=== PATIENT | male | born 1980 | race Caucasian/White ===

== ENCOUNTER 2021-10-02 07:43 | Inpatient (IN) | payer OTHER ==
[~2021-10-02] VITALS: Ht 177.8 cm; Wt 89.4 kg
[2021-10-02] VITALS (49 sets, daily range): BP systolic 112–202; BP diastolic 54–118
[2021-10-02] MEDS ORDERED: AMIODARONE HCL 150 MG in D5W 5% 100 ML IV ONE (08:00)
[2021-10-02] MEDS ORDERED: AMIODARONE 450mg/250ml AE 250 ML IV SCH ×2 (08:00→14:00)
[2021-10-02] MEDS ORDERED: NOREPINEPHRINE 8 MG/250ML KIT 250 ML IV SCH (08:00)
[2021-10-02] MEDS ORDERED: EPINEPHrine HCL 250 ML IV ONE (08:01)
[2021-10-02] MEDS ORDERED: SODIUM BICARBONATE 8.4% INJ 50ML SYRINGE ONE ×2 (08:04→08:17)
[2021-10-02] MEDS ORDERED: LIDOCAINE 50MG/5ML INJ 5ML SYRINGE IV ONE (08:07)
[2021-10-02] MEDS: EPINEPHrine HCL 250 ML IV SCH (08:10)
[2021-10-02 08:12] LABS: Urine Bacteria MOD /hpf (None Seen); Urine Blood TRACE /uL (Negative); Urine Mucus FEW (None Seen); Urine Specific Gravity 1.009 (1.001-1.035); Urine Sperm PRESENT /hpf (None Seen); Urine WBC 22 /hpf (0 - 3)
[2021-10-02] MEDS ORDERED: SODIUM BICARBONATE 8.4 % INJ 50ML VIAL IV ONE ×3 (08:15→14:21)
[2021-10-02] MEDS ORDERED: SODIUM CHLORIDE 0.9% 1,000 ML IV ONE ×2 (08:15→11:15)
[2021-10-02] MEDS ORDERED: methylPREDNISolone SOD SUCC 125 MG/2 ML VL IV ONE ×2 (08:15→08:30)
[2021-10-02] MEDS ORDERED: cefTRIAXone 1GM/50ML D5W 50 ML IV ONE (08:15)
[2021-10-02] MEDS ORDERED: AZITHROMYCIN 500MG/ 250ML 250 ML IV ONE (08:15)
[2021-10-02] MEDS: LIDOCAINE 4MG/ML IV SOLN 500 ML IV SCH (08:19)
[2021-10-02 08:24] LABS: Alcohol, Urine < 3.0 mg/dL (0-10); Amphetamine Screen, Urine NEGATIVE (NEGATIVE); Barbiturate Scree,Urine NEGATIVE (NEGATIVE); Benzodiazephine Screen, Urine NEGATIVE (NEGATIVE); Cannabinoid Screen, Urine NEGATIVE (NEGATIVE); Cocaine Screen, Urine NEGATIVE (NEGATIVE); Opiate Scree,Urine NEGATIVE (NEGATIVE); Phencyclidine Screen, Urine NEGATIVE (NEGATIVE)
[2021-10-02 08:30] LABS: Hemoglobin 12.4 g/dL (13.5-17.5); Mean Corpuscular Hgb Conc. 31.1 g/dL (32.0-36.0); Mean Corpuscular Volume 90.3 fL (80.0-100.0); Red Blood Cells 4.43 10^6/uL (4.5-5.90); Red Cell Distribution Width 13.9 % (11.8-14.3); White Blood Cell 18.4 10^3/uL (4.4-10.8)
[2021-10-02] MEDS ORDERED: LIDOCAINE HCL 100 MG/5ML (2%) SYRG INJ IV ONE ×2 (08:30→14:30)
[2021-10-02] MEDS: NOREPINEPHRINE 8 MG/250ML KIT 250 ML IV SCH ×2 (08:32→21:52)
[2021-10-02 08:49] LABS: INR 1.13 (0.9-1.15); Partial Thromboplastin Time 31.1 sec (24.6-33.4)
[2021-10-02 08:50] LABS: Magnesium 2.4 mg/dL (1.6-2.6); Potassium 3.5 mmol/L (3.5-5.1)
[2021-10-02] MEDS ORDERED: MIDAZOLAM DRIP 50 mg/50mL 50 ML IV ONE (08:51)
[2021-10-02] MEDS: MIDAZOLAM DRIP 50 mg/50mL 50 ML IV SCH (08:52)
[2021-10-02 08:53] LABS: BUN/Creatinine Ratio 13.2; Bilirubin, Total 0.5 mg/dL (0.2-1.0); Total Protein 5.3 g/dL (6.4-8.2)
[2021-10-02 08:56] LABS: Blast Cells 0; Myelocytes % 0; Promyelocytes % 0
[2021-10-02] MEDS ORDERED: PROPOFOL 100 ML IV ONE (09:05)
[2021-10-02] MEDS: PROPOFOL 100 ML IV SCH ×2 (09:06→22:11)
[2021-10-02 09:33] LABS: Band Neutrophils % (manual) 1; Basophils % (manual) 1 (0.0-2.0); Eosinophils % (manual) 1 (0-7); Lymphocytes % (manual) 50 (10.0-50.0); Metamyelocytes % 1; Monocytes % (manual) 5 (0-12); Reactive Lymphocytes 5
[2021-10-02] MEDS ORDERED: POTASSIUM CHL 20MEQ/100ML 100 ML IV ONE (11:00)
[2021-10-02] MEDS ORDERED: ASPirin 325 MG TAB PO ONE (11:00)
[2021-10-02] MEDS ORDERED: HEPARIN SODIUM (PORCINE) 5000 UNITS/ML 1ML VIAL IV ONE (11:45)
[2021-10-02] MEDS ORDERED: HEPARIN DRIP/D5W 100UNITS/ML 250 ML IV SCH ×3 (11:50→19:30)
[2021-10-02] MEDS ORDERED: MORPHINE SULFATE INJ 2 MG/ml SYRG IV PRN ×2 (12:30→14:30)
[2021-10-02] MEDS ORDERED: NITROGLYCERIN 0.4 MG SL TAB SL PRN ×2 (12:30→14:30)
[2021-10-02 13:09] LABS: Cholesterol 109 mg/dL (< 200); HDL Cholesterol 44 mg/dL (40-59); LDL Cholesterol 60 mg/dL (< 100); Triglycerides 115 mg/dL (< 150)
[2021-10-02] MEDS ORDERED: AMIODARONE HCL (50 MG/ ML) 3 ML VIAL IV ONE (14:21)
[2021-10-02] MEDS ORDERED: D5W 5% 100 ML MINI BAG IV ONE (14:21)
[2021-10-02] MEDS ORDERED: EPINEPHrine HCL 1 MG/10 ML SYRG IV ONE (14:21)
[2021-10-02] MEDS ORDERED: VANCOMYCIN PER PHARMACY 0 MG IV SCH (14:45)
[2021-10-02] MEDS ORDERED: VANCOMYCIN 1GM/250ML 250 ML IV ONE (15:00)
[2021-10-02] MEDS ORDERED: DEXTROSE (50%) 50ML SYRG IV PRN (15:45)
[2021-10-02] MEDS ORDERED: ASPI1TAB20 PO (16:02)
[2021-10-02] MEDS ORDERED: PRE5T PO (16:02)
[2021-10-02] MEDS ORDERED: METO1TAB9 PO (16:02)
[2021-10-02] MEDS ORDERED: SODI650T PO (16:02)
[2021-10-02] MEDS ORDERED: TACR1CAP19 PO (16:02)
[2021-10-02] MEDS ORDERED: NITR0.4S29 SL (16:02)
[2021-10-02] MEDS ORDERED: ROSU10TA16 PO (16:02)
[2021-10-02] MEDS ORDERED: MYCO500T PO (16:02)
[2021-10-02] MEDS: ACCU-CHEK COMFORT CURVE STRIP VI SCH ×2 (16:29→20:45)
[2021-10-02] MEDS: SOD CHL 0.45% 1,000 ML IV SCH (16:29)
[2021-10-02] MEDS: InsuLIN REG 1unit/0.01ml Soln (100units/ml) SC SCH ×2 (16:49→20:46)
[2021-10-02] MEDS: PIPERACILLIN-TAZOB 2.25GM 50 ML IV SCH (18:42)
[2021-10-02 18:55] LABS: INR 1.16 (0.9-1.15); Partial Thromboplastin Time 35.5 sec (24.6-33.4)
[2021-10-02] MEDS ORDERED: INSULIN LANTUS (GLARGINE) 1 /0.01ml (100units/ml) SC ONE (20:30)
[2021-10-03] VITALS (99 sets, daily range): BP systolic 93–138; BP diastolic 45–73
[2021-10-03] MEDS ORDERED: DEXTROSE (50%) 50ML SYRG IV PRN ×2 (00:15→08:45)
[2021-10-03] MEDS: PIPERACILLIN-TAZOB 2.25GM 50 ML IV SCH ×2 (00:57→06:12)
[2021-10-03] MEDS: SOD CHL 0.45% 1,000 ML IV SCH ×3 (01:00→21:00)
[2021-10-03 01:14] LABS: Calcium 7.9 mg/dL (8.5-10.1); Potassium 4.5 mmol/L (3.5-5.1)
[2021-10-03 01:19] LABS: BUN/Creatinine Ratio 14.5
[2021-10-03] MEDS ORDERED: InsuLIN REG 1unit/0.01ml Soln (100units/ml) SC ONE (01:30)
[2021-10-03 02:09] LABS: INR 1.18 (0.9-1.15)
[2021-10-03 02:19] LABS: Partial Thromboplastin Time 98.8 sec (24.6-33.4)
[2021-10-03 04:09] LABS: Basophils # (auto) 0 10 ^3/uL (0-0.2); Basophils % (auto) 0.1 % (0.0-2.0); Eosinophils # (auto) 0 10 ^3/uL (0-0.8); Hematocrit 43.1 % (41.0-53.0); Hemoglobin 13.8 g/dL (13.5-17.5); Lymphocytes # (auto) 0.4 10 ^3/uL (0.4-5.4); Lymphocytes % (auto) 2.4 % (10.0-50.0); Mean Corpuscular Hemoglobin 28.4 pg (28.0-32.0); Mean Corpuscular Hgb Conc. 32.1 g/dL (32.0-36.0); Mean Corpuscular Volume 88.6 fL (80.0-100.0); Monocytes # (auto) 0.7 10 ^3/uL (0-1.3); Monocytes % (auto) 4.1 % (0.0-12.0); Neutrophils # (auto) 16.3 10 ^3/uL (1.6-8.6); Neutrophils % (auto) 93.4 % (37.0-80.0); Nucleated Red Blood Cells % 0.1 %; Red Blood Cells 4.86 10^6/uL (4.5-5.90); Red Cell Distribution Width 13.8 % (11.8-14.3); White Blood Cell 17.5 10^3/uL (4.4-10.8)
[2021-10-03] MEDS: InsuLIN REG 1unit/0.01ml Soln (100units/ml) SC SCH ×2 (04:44→08:18)
[2021-10-03] MEDS: ACCU-CHEK COMFORT CURVE STRIP VI SCH ×12 (04:45→22:42)
[2021-10-03 04:51] LABS: Albumin 3.5 g/dL (3.4-5.0); Potassium 4.3 mmol/L (3.5-5.1)
[2021-10-03 04:54] LABS: Bilirubin, Total 0.6 mg/dL (0.2-1.0); Phosphorus 2.5 mg/dL (2.5-4.90); Total Protein 6.5 g/dL (6.4-8.2)
[2021-10-03 05:05] LABS: BUN/Creatinine Ratio 12.7
[2021-10-03] MEDS: MIDAZOLAM DRIP 50 mg/50mL 50 ML IV SCH ×4 (05:57→20:39)
[2021-10-03] MEDS: EPINEPHrine HCL 250 ML IV SCH ×2 (08:00→16:44)
[2021-10-03] MEDS: LIDOCAINE 4MG/ML IV SOLN 500 ML IV SCH ×2 (08:15→16:45)
[2021-10-03 08:22] LABS: INR 1.2 (0.9-1.15); Partial Thromboplastin Time 67.3 sec (24.6-33.4)
[2021-10-03] MEDS ORDERED: INSULIN LANTUS (GLARGINE) 1 /0.01ml (100units/ml) SC ONE (08:45)
[2021-10-03] MEDS ORDERED: InsuLIN R (HUMAN) 100 UNITS in SODIUM CHL 0.9% 99 ML IV SCH (08:45)
[2021-10-03] MEDS: SODIUM CHLORIDE 0.9% 1,000 ML IV SCH ×4 (09:42→20:43)
[2021-10-03] MEDS ORDERED: MYCOPHENOLATE 500 MG TAB PO SCH (10:00)
[2021-10-03] MEDS ORDERED: TACROLIMUS 1 MG CAP PO SCH (10:00)
[2021-10-03] MEDS: LINEZOLID 600MG/300ML 300 ML IV SCH ×2 (10:08→22:11)
[2021-10-03] MEDS: ASPirin 81 mg TAB PO SCH (10:08)
[2021-10-03] MEDS: PROPOFOL 100 ML IV SCH ×3 (10:59→21:28)
[2021-10-03] MEDS: NOREPINEPHRINE 8 MG/250ML KIT 250 ML IV SCH ×2 (11:12→16:17)
[2021-10-03] MEDS: MYCOPHENOLATE 1000mg/5ml ORALsusp 200mg/ml NG SCH ×2 (11:40→22:13)
[2021-10-03] MEDS: MEROPENEM 1GM IVPB 100 ML IV SCH (11:57)
[2021-10-03] MEDS: TACROLIMUS 1 MG CAP GT SCH ×2 (11:59→22:13)
[2021-10-03] MEDS ORDERED: SODIUM CHLORIDE 0.9% 1,000 ML IV SCH (12:45)
[2021-10-03] MEDS ORDERED: VANCOMYCIN 750mg/250ml 250 ML IV SCH (16:00)
[2021-10-03 16:08] LABS: BUN/Creatinine Ratio 13.2; Calcium 7.6 mg/dL (8.5-10.1); Potassium 3.5 mmol/L (3.5-5.1)
[2021-10-03 16:32] LABS: INR 1.26 (0.9-1.15)
[2021-10-03 16:38] LABS: Partial Thromboplastin Time > 139.0 sec (24.6-33.4)
[2021-10-03] MEDS: HEPARIN DRIP/D5W 100UNITS/ML 250 ML IV SCH (17:45)
[2021-10-03] MEDS ORDERED: FUROSEMIDE 100 MG/10ML VIAL IV ONE (19:00)
[2021-10-03] MEDS ORDERED: INSULIN LANTUS (GLARGINE) 1 /0.01ml (100units/ml) SC SCH (22:00)
[2021-10-04] VITALS (104 sets, daily range): BP systolic 89–130; BP diastolic 43–74
[2021-10-04] MEDS: MEROPENEM 1GM IVPB 100 ML IV SCH (00:07)
[2021-10-04] MEDS: MIDAZOLAM DRIP 50 mg/50mL 50 ML IV SCH ×6 (00:14→21:54)
[2021-10-04 01:07] LABS: INR 1.18 (0.9-1.15); Partial Thromboplastin Time 40.9 sec (24.6-33.4)
[2021-10-04] MEDS: ACCU-CHEK COMFORT CURVE STRIP VI SCH ×8 (01:46→23:55)
[2021-10-04] MEDS: PROPOFOL 100 ML IV SCH ×3 (01:48→22:51)
[2021-10-04] MEDS: SODIUM CHLORIDE 0.9% 1,000 ML IV SCH (04:05)
[2021-10-04 04:20] LABS: Hematocrit 34.9 % (41.0-53.0); Hemoglobin 11.9 g/dL (13.5-17.5); Mean Corpuscular Volume 85.3 fL (80.0-100.0); Red Blood Cells 4.09 10^6/uL (4.5-5.90); Red Cell Distribution Width 14.5 % (11.8-14.3)
[2021-10-04 04:51] LABS: Basophils % (manual) 0 (0.0-2.0); Blast Cells 0; Eosinophils % (manual) 0 (0-7); Myelocytes % 0; Promyelocytes % 0; Reactive Lymphocytes 0; White Blood Cell 32.6 10^3/uL (4.4-10.8)
[2021-10-04] MEDS: HEPARIN DRIP/D5W 100UNITS/ML 250 ML IV SCH (05:45)
[2021-10-04] MEDS: NOREPINEPHRINE 8 MG/250ML KIT 250 ML IV SCH (05:48)
[2021-10-04 06:00] LABS: Band Neutrophils % (manual) 16; Lymphocytes % (manual) 8 (10.0-50.0); Metamyelocytes % 1; Monocytes % (manual) 8 (0-12)
[2021-10-04] MEDS ORDERED: DEXTROSE (50%) 50ML SYRG IV PRN (06:45)
[2021-10-04 07:23] LABS: Albumin 2.7 g/dL (3.4-5.0); BUN/Creatinine Ratio 11.9; Calcium 7.1 mg/dL (8.5-10.1); Potassium 4.5 mmol/L (3.5-5.1)
[2021-10-04 07:26] LABS: Bilirubin, Total 0.4 mg/dL (0.2-1.0); Total Protein 5.5 g/dL (6.4-8.2)
[2021-10-04] MEDS: SOD CHL 0.45% 1,000 ML IV SCH (08:26)
[2021-10-04] MEDS ORDERED: PANTOPRAZOLE 40 MG/10 ML VIAL INJ IV SCH (10:00)
[2021-10-04] MEDS: ASPirin 81 mg TAB PO SCH (10:48)
[2021-10-04] MEDS: LINEZOLID 600MG/300ML 300 ML IV SCH ×2 (10:49→21:10)
[2021-10-04] MEDS: TACROLIMUS 1 MG CAP GT SCH ×2 (10:50→21:55)
[2021-10-04] MEDS: MYCOPHENOLATE 1000mg/5ml ORALsusp 200mg/ml NG SCH ×2 (10:50→21:55)
[2021-10-04] MEDS: INSULIN LANTUS (GLARGINE) 1 /0.01ml (100units/ml) SC SCH (11:00)
[2021-10-04 11:27] LABS: Hepatitis B Surface Antibody Negative (Negative)
[2021-10-04] MEDS: InsuLIN REG 1unit/0.01ml Soln (100units/ml) SC SCH ×3 (12:00→23:52)
[2021-10-04 12:03] LABS: Hepatitis A Total Antibody Negative (Negative)
[2021-10-04] MEDS ORDERED: PIPERACILLIN-TAZOB 3.375GM 100 ML IV ONE (12:06)
[2021-10-04] MEDS ORDERED: DOPamine 1600MCG/ML D5W 250 ML IV ONE (13:27)
[2021-10-04] MEDS: PIPERACILLIN-TAZOB 3.375GM 100 ML IV SCH ×2 (13:37→22:05)
[2021-10-04 13:48] LABS: Hepatitis C Antibody Negative (Negative)
[2021-10-04 13:53] LABS: INR 1.18 (0.9-1.15); Partial Thromboplastin Time 56.7 sec (24.6-33.4)
[2021-10-04 14:09] LABS: Protein, Urine 20.9 mg/dL (0.0-11.9)
[2021-10-04] MEDS: DOPamine 1600MCG/ML D5W 250 ML IV SCH (14:12)
[2021-10-04 19:45] LABS: INR 1.16 (0.9-1.15); Partial Thromboplastin Time 58.6 sec (24.6-33.4)
[2021-10-05] VITALS (102 sets, daily range): BP systolic 106–138; BP diastolic 56–76
[2021-10-05] MEDS: MIDAZOLAM DRIP 50 mg/50mL 50 ML IV SCH ×4 (01:05→19:16)
[2021-10-05] MEDS: LIDOCAINE 4MG/ML IV SOLN 500 ML IV SCH (01:06)
[2021-10-05] MEDS: NOREPINEPHRINE 8 MG/250ML KIT 250 ML IV SCH ×2 (03:12→15:57)
[2021-10-05] MEDS: HEPARIN DRIP/D5W 100UNITS/ML 250 ML IV SCH (03:36)
[2021-10-05 03:52] LABS: Basophils # (auto) 0.1 10 ^3/uL (0-0.2); Basophils % (auto) 0.8 % (0.0-2.0); Eosinophils # (auto) 0 10 ^3/uL (0-0.8); Eosinophils % (auto) 0.1 % (0.0-7.0); Hematocrit 30.3 % (41.0-53.0); Hemoglobin 10.2 g/dL (13.5-17.5); Lymphocytes # (auto) 1.8 10 ^3/uL (0.4-5.4); Lymphocytes % (auto) 12.7 % (10.0-50.0); Mean Corpuscular Hemoglobin 28.5 pg (28.0-32.0); Mean Corpuscular Hgb Conc. 33.7 g/dL (32.0-36.0); Mean Corpuscular Volume 84.5 fL (80.0-100.0); Monocytes # (auto) 0.9 10 ^3/uL (0-1.3); Monocytes % (auto) 6.7 % (0.0-12.0); Neutrophils # (auto) 11.2 10 ^3/uL (1.6-8.6); Neutrophils % (auto) 79.7 % (37.0-80.0); Red Blood Cells 3.58 10^6/uL (4.5-5.90); Red Cell Distribution Width 14.2 % (11.8-14.3); White Blood Cell 14.1 10^3/uL (4.4-10.8)
[2021-10-05 04:12] LABS: Albumin 2.5 g/dL (3.4-5.0); Calcium 7.3 mg/dL (8.5-10.1); Potassium 4.6 mmol/L (3.5-5.1)
[2021-10-05 04:15] LABS: BUN/Creatinine Ratio 11.9; Bilirubin, Total 0.6 mg/dL (0.2-1.0); Total Protein 5.6 g/dL (6.4-8.2)
[2021-10-05] MEDS: SOD CHL 0.45% 1,000 ML IV SCH (04:15)
[2021-10-05] MEDS: ACCU-CHEK COMFORT CURVE STRIP VI SCH ×4 (05:45→23:48)
[2021-10-05] MEDS: InsuLIN REG 1unit/0.01ml Soln (100units/ml) SC SCH ×4 (05:45→23:50)
[2021-10-05] MEDS: PIPERACILLIN-TAZOB 3.375GM 100 ML IV SCH ×3 (05:45→21:50)
[2021-10-05] MEDS: PROPOFOL 100 ML IV SCH ×3 (06:18→22:35)
[2021-10-05] MEDS: EPINEPHrine HCL 250 ML IV SCH (08:00)
[2021-10-05] MEDS: SODIUM CHLORIDE 0.9% 1,000 ML IV SCH (08:00)
[2021-10-05 09:22] LABS: INR 1.09 (0.9-1.15); Partial Thromboplastin Time 40.6 sec (24.6-33.4)
[2021-10-05] MEDS: MYCOPHENOLATE 1000mg/5ml ORALsusp 200mg/ml NG SCH ×2 (09:55→21:48)
[2021-10-05] MEDS: PANTOPRAZOLE 40 MG/10 ML VIAL INJ IV SCH ×2 (09:55→21:48)
[2021-10-05] MEDS: LINEZOLID 600MG/300ML 300 ML IV SCH ×2 (09:55→20:56)
[2021-10-05] MEDS: ASPirin 81 mg TAB PO SCH (09:56)
[2021-10-05] MEDS: TACROLIMUS 1 MG CAP GT SCH ×2 (09:56→21:49)
[2021-10-05] MEDS: INSULIN LANTUS (GLARGINE) 1 /0.01ml (100units/ml) SC SCH (09:57)
[2021-10-05] MEDS: DOPamine 1600MCG/ML D5W 250 ML IV SCH (13:10)
[2021-10-06] VITALS (47 sets, daily range): BP systolic 111–140; BP diastolic 63–73
[2021-10-06] MEDS: MIDAZOLAM DRIP 50 mg/50mL 50 ML IV SCH (00:02)
[2021-10-06] MEDS: LIDOCAINE 4MG/ML IV SOLN 500 ML IV SCH (02:44)
[2021-10-06 03:44] LABS: Basophils # (auto) 0 10 ^3/uL (0-0.2); Basophils % (auto) 0.5 % (0.0-2.0); Eosinophils # (auto) 0.1 10 ^3/uL (0-0.8); Eosinophils % (auto) 0.9 % (0.0-7.0); Hematocrit 28.3 % (41.0-53.0); Hemoglobin 9.9 g/dL (13.5-17.5); Lymphocytes # (auto) 1.3 10 ^3/uL (0.4-5.4); Lymphocytes % (auto) 12.7 % (10.0-50.0); Mean Corpuscular Hemoglobin 29.7 pg (28.0-32.0); Mean Corpuscular Hgb Conc. 35.2 g/dL (32.0-36.0); Mean Corpuscular Volume 84.4 fL (80.0-100.0); Monocytes # (auto) 0.7 10 ^3/uL (0-1.3); Monocytes % (auto) 7.1 % (0.0-12.0); Neutrophils % (auto) 78.8 % (37.0-80.0); Nucleated Red Blood Cells % 0.2 %; Red Blood Cells 3.35 10^6/uL (4.5-5.90); White Blood Cell 10.1 10^3/uL (4.4-10.8)
[2021-10-06] MEDS: SODIUM CHLORIDE 0.9% 1,000 ML IV SCH (04:00)
[2021-10-06 04:03] LABS: Albumin 2.6 g/dL (3.4-5.0); Calcium 7.5 mg/dL (8.5-10.1); Potassium 3.7 mmol/L (3.5-5.1)
[2021-10-06 04:05] LABS: BUN/Creatinine Ratio 12.9
[2021-10-06 04:08] LABS: Bilirubin, Total 0.7 mg/dL (0.2-1.0); Total Protein 5.4 g/dL (6.4-8.2)
[2021-10-06] MEDS: InsuLIN REG 1unit/0.01ml Soln (100units/ml) SC SCH (05:28)
[2021-10-06] MEDS: ACCU-CHEK COMFORT CURVE STRIP VI SCH (05:28)
[2021-10-06] MEDS: PROPOFOL 100 ML IV SCH (05:29)
[2021-10-06] MEDS: PIPERACILLIN-TAZOB 3.375GM 100 ML IV SCH (05:29)
[2021-10-06] MEDS: NOREPINEPHRINE 8 MG/250ML KIT 250 ML IV SCH (05:52)
[2021-10-06] MEDS: EPINEPHrine HCL 250 ML IV SCH (07:51)
[2021-10-06] MEDS: PANTOPRAZOLE 40 MG/10 ML VIAL INJ IV SCH (10:00)
[2021-10-06] MEDS: LINEZOLID 600MG/300ML 300 ML IV SCH (10:00)
[2021-10-06] MEDS: MYCOPHENOLATE 1000mg/5ml ORALsusp 200mg/ml NG SCH (10:00)
[2021-10-06] MEDS ORDERED: MORPHINE SULFATE INJ 2 MG/ml SYRG IV PRN (10:00)
[2021-10-06] MEDS ORDERED: LORazepam 2MG/ML-1ML VIAL IV PRN (10:00)
[2021-10-06] MEDS: INSULIN LANTUS (GLARGINE) 1 /0.01ml (100units/ml) SC SCH (10:00)
[2021-10-06] MEDS: TACROLIMUS 1 MG CAP GT SCH (10:00)
== END 2021-10-06 12:47 | DRG 870 ==
LOC: EDBD 07:43 → ER 07:43 → ICU WEST 12:30
PROVIDERS: ADMIT Internal Medicine; ATTEND Internal Medicine
PROC: 5A1955Z Respiratory Ventilation, Greater than 96 Consecutive Hours (ICD-10-PCS; principal; 2021-10-02)
PROC: 0BH17EZ Insertion of Endotracheal Airway into Trachea, Via Natural or Artificial Opening (ICD-10-PCS; 2021-10-02)
PROC: 06HM33Z Insertion of Infusion Device into Right Femoral Vein, Percutaneous Approach (ICD-10-PCS; 2021-10-02)
PROC: 5A12012 Performance of Cardiac Output, Single, Manual (ICD-10-PCS; 2021-10-02)
DX: A41.9 Sepsis, unspecified organism (principal); J96.01 Acute respiratory failure with hypoxia; J18.9 Pneumonia, unspecified organism; N17.0 Acute kidney failure with tubular necrosis; E10.10 Type 1 diabetes mellitus with ketoacidosis without coma; G93.41 Metabolic encephalopathy; I21.4 Non-ST elevation (NSTEMI) myocardial infarction; R65.21 Severe sepsis with septic shock; G93.6 Cerebral edema; K72.00 Acute and subacute hepatic failure without coma; N18.6 End stage renal disease; I47.2 Ventricular tachycardia; G93.1 Anoxic brain damage, not elsewhere classified; N39.0 Urinary tract infection, site not specified; I13.2 Hypertensive heart and chronic kidney disease with heart failure and with stage 5 chronic kidney disease, or end stage renal disease; T86.19 Other complication of kidney transplant; Z94.83 Pancreas transplant status; Z94.4 Liver transplant status; I46.9 Cardiac arrest, cause unspecified; E66.9 Obesity, unspecified; E78.5 Hyperlipidemia, unspecified; I50.9 Heart failure, unspecified; N18.9 Chronic kidney disease, unspecified; E88.09 Other disorders of plasma-protein metabolism, not elsewhere classified; E10.22 Type 1 diabetes mellitus with diabetic chronic kidney disease; H54.8 Legal blindness, as defined in USA; I49.01 Ventricular fibrillation; Y83.0 Surgical operation with transplant of whole organ as the cause of abnormal reaction of the patient, or of later complication, without mention of misadventure at the time of the procedure; Y92.89 Other specified places as the place of occurrence of the external cause; Z79.82 Long term (current) use of aspirin; Z83.3 Family history of diabetes mellitus; Z89.519 Acquired absence of unspecified leg below knee; Z79.899 Other long term (current) drug therapy; Z88.8 Allergy status to other drugs, medicaments and biological substances
CPT/HCPCS: 31500; 36415; 36556; 36600; 70450; 71045; 71250; 74176; 76775; 80048; 80053; 80061; 80197; 80307; 81001; 82010; 82270; 82271; 82306; 82570; 82728; 82805; 82962; 83036; 83605; 83735; 83880; 83970; 84100; 84156; 84300; 84443; 84484; 85007; 85025; 85027; 85379; 85610; 85730; 86141; 86704; 86706; 86708; 86803; 87040; 87070; 87076; 87081; 87205; 87340; 93005; 93306; 93970; 94002; 94003; 95819; 96365; 96366; 96375; 99291; A4618; C9113; G0378; J0171; J0696; J1815; J2185; J2250; J2543; J2704; J3480; J7060; J7507; J7517